=== PATIENT | male | born 1975 | race Caucasian/White ===

== ENCOUNTER 2025-02-23 13:13 | Emergency (ER) | payer OTHER ==
[~2025-02-23] VITALS: Ht 180.3 cm; Wt 99.8 kg
[2025-02-23] MEDS: HYDROMORPHONE 1 MG/1 ML DISP.SYRIN IM ONE ×2 (13:46→14:50)
[2025-02-23] MEDS: diphenhydrAMINE 50 MG/1 ML VIAL IM ONE (13:46)
[2025-02-23] MEDS ORDERED: diphenhydrAMINE 50 MG/1 ML VIAL ONE (13:46)
[2025-02-23] MEDS ORDERED: HYDROMORPHONE 1 MG/1 ML DISP.SYRIN ONE ×2 (13:46→14:46)
[2025-02-23] MEDS ORDERED: HYDR-3980 PO (14:05)
[2025-02-23] MEDS ORDERED: NABU-140 PO (14:05)
[2025-02-23 14:55] VITALS: O2SAT 99
== END 2025-02-23 15:27 | disposition home or self-care (01) ==
LOC: ER 13:13
DX: M23.91 Unspecified internal derangement of right knee (principal); R03.0 Elevated blood-pressure reading, without diagnosis of hypertension
CPT/HCPCS: 29505; 73700; 96372; 99285; J1171; J1200; A4606; A4663